=== PATIENT | female | born 1975 | race Caucasian/White ===

== ENCOUNTER 2020-08-09 07:45 | Emergency (ER) | payer BC ==
[~2020-08-09] VITALS: Ht 179.1 cm; Wt 77.9 kg
[2020-08-09 08:11] VITALS: BP 104/70
--- NOTE | 2020-08-09 08:46 | NUR ---
Report received from BERTRAND Dickens and care assumed.
--- NOTE | 2020-08-09 08:51 | NUR ---
Pt off monitor and ambulatory to restroom and back with steady gait.
--- NOTE | 2020-08-09 08:59 | NUR ---
MD at bedside to discuss findings and plan of care.
== END 2020-08-09 09:43 | disposition home or self-care (01) ==
LOC: ED 08:44
DX: L03.115 Cellulitis of right lower limb (principal); M79.651 Pain in right thigh
CPT/HCPCS: 99284